=== PATIENT | female | born 1950 | race Caucasian/White ===

== ENCOUNTER 2021-07-14 07:36 | Outpatient (CLI) | payer BC | END 2021-07-14 07:37 | disposition home or self-care (01) | LOC: CSHCT 07:36 | PROVIDERS: ATTEND Physician Assistant Medical | DX: R93.5 Abnormal findings on diagnostic imaging of other abdominal regions, including retroperitoneum (principal); R16.0 Hepatomegaly, not elsewhere classified | CPT/HCPCS: 74177; 82565 ==

== ENCOUNTER 2021-07-18 08:27 | Outpatient (CLI) | payer BC | END 2021-07-18 08:28 | disposition home or self-care (01) | LOC: CSHMAMMO 08:27 | PROVIDERS: ATTEND Family Medicine | DX: Z12.31 Encounter for screening mammogram for malignant neoplasm of breast (principal); Z80.3 Family history of malignant neoplasm of breast; R92.1 Mammographic calcification found on diagnostic imaging of breast | CPT/HCPCS: 77063; 77067 ==

== ENCOUNTER 2021-07-24 09:14 | Outpatient (CLI) | payer BC | END 2021-07-24 09:15 | disposition home or self-care (01) | LOC: CSHMAMMO 09:14 | PROVIDERS: ATTEND Family Medicine | DX: R92.2 Inconclusive mammogram (principal); N64.89 Other specified disorders of breast | CPT/HCPCS: G0279 ==

== ENCOUNTER 2022-06-18 13:31 | Outpatient (CLI) | payer MEDICARE | END 2022-06-18 13:32 | disposition home or self-care (01) | LOC: CSHCT 13:31 | PROVIDERS: ATTEND Neurological Surgery | DX: G93.0 Cerebral cysts (principal); I67.9 Cerebrovascular disease, unspecified | CPT/HCPCS: 70450 ==

== ENCOUNTER 2023-10-29 08:05 | Outpatient (CLI) | payer MEDICARE | END 2023-10-29 08:06 | disposition home or self-care (01) | LOC: CSHMAMMO 08:05 | PROVIDERS: ATTEND Family Medicine | DX: Z13.820 Encounter for screening for osteoporosis (principal); M85.89 Other specified disorders of bone density and structure, multiple sites | CPT/HCPCS: 77080 ==

== ENCOUNTER 2024-02-04 09:58 | Outpatient (CLI) | payer MEDICARE | END 2024-02-04 09:59 | disposition home or self-care (01) | LOC: CSHCT 09:58 | PROVIDERS: ATTEND Family Medicine | DX: R42 Dizziness and giddiness (principal); Z86.69 Personal history of other diseases of the nervous system and sense organs; R90.82 White matter disease, unspecified; G93.0 Cerebral cysts | CPT/HCPCS: 70450 ==